=== PATIENT | female | born 1930 | race African-American/Black ===

== ENCOUNTER 2017-12-06 22:14 | Emergency (ER) | payer MEDICARE ==
--- NOTE | 2017-12-06 23:45 | CT ---
CT BRAIN NONCONTRAST: HISTORY: An 86-year-old female, status post head trauma. FINDINGS: There is no midline shift or any other mass effect. There is no evidence of acute intracranial hemor rhage, large cortical infarct, obstructive hydrocephalus, or extraaxial fluid collection. The calvar ium is intact. There is diffuse parenchymal volume loss. There are low attenuation areas in the whi te matter. 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 IMPRESSION: 1) No acute intracranial findings. 2) Involutional changes and chronic ischemic white matter changes. jn [] POS: FELICIA
--- NOTE | 2017-12-06 23:53 | RAD ---
RADIOGRAPH PELVIS ONE VIEW: DATE: 12/06/2017 TIME: 11:08 p.m. HISTORY: An 86-year-old female with acute traumatic right hip pain after fall. FINDINGS: Severe osteopenia, a large amount of colonic stool, especially in the rectum, and overlying bowel gas , all significantly lower the sensitivity of the radiograph for the detection of fractures. No obvio us, grossly displaced fracture is identified. There is a metallic prosthesis replacing the right fem oral head and neck, with a stem whose distal tip in the femoral shaft is outside the field of view. IMPRESSION: 1. Limited study with low sensitivity for the detection of fractures. 2. No definite fracture identified. 3. Status post right hip replacement arthroplasty. 4. Severe osteopenia. 5. If the patient's symptoms do not improve over the next several days, serial repeat radiographs ar e recommended. POS: FELICIA
--- NOTE | 2017-12-06 23:56 | RAD ---
RADIOGRAPH RIGHT HIP TWO VIEWS: DATE: 12/06/2017 TIME: 11:11 p.m. HISTORY: An 86-year-old female with acute traumatic right hip pain due to fall. FINDINGS: Metallic prosthesis replaces the femoral head and neck. The distal tip of the stem is at the junctio n between the proximal and middle thirds of the femoral diaphysis. Partial visualization of a metall ic plate and screws at the mid to distal femoral diaphysis. Severe diffuse osteopenia, a large amoun t of stool in the rectum, and overlying bowel gas all decrease the sensitivity of the radiograph in t he detection for fractures. IMPRESSION: 1. No fracture identified. No dislocation. 2. Status post right hip replacement arthroplasty. 3. Status post open reduction and internal fixation of femoral shaft. POS: FELICIA
== END 2017-12-07 00:34 | disposition home or self-care (01) ==
LOC: ERS 22:14
DX: S09.90XA Unspecified injury of head, initial encounter (principal); S70.01XA Contusion of right hip, initial encounter; E11.9 Type 2 diabetes mellitus without complications; F17.220 Nicotine dependence, chewing tobacco, uncomplicated; W01.0XXA Fall on same level from slipping, tripping and stumbling without subsequent striking against object, initial encounter; Y93.01 Activity, walking, marching and hiking
CPT/HCPCS: 70450; 72170